=== PATIENT | male | born 2000 | race Hispanic/Latino ===

== ENCOUNTER 2019-06-02 10:22 | Emergency (ER) | payer OTHER ==
[2019-06-02] MEDS ORDERED: Adacel (T-DAP) 0.5 ML SYRINGE ONE (11:14)
== END 2019-06-02 11:47 | disposition home or self-care (01) ==
LOC: ERS 10:22
DX: L24.89 Irritant contact dermatitis due to other agents (principal); F17.210 Nicotine dependence, cigarettes, uncomplicated
CPT/HCPCS: 90471; 90715